=== PATIENT | male | born 1990 | race Caucasian/White ===

== ENCOUNTER 2019-01-01 02:36 | Emergency (ER) | payer OTHER, BC ==
[~2019-01-01] VITALS: Ht 185.4 cm; Wt 74.8 kg
[~2019-01-01 02:36] MED LIST: BACTRIM DS 8001 TAB PO; BUPROPION HCL150 M1 PO; HYDROCODONE BIT1 T11 PO; IBU800 M1 PO; KEFLEX500 M1 PO; MINIPRESS1 MG PO; Motrin,Rufen800 MG PO; NORCO 5-325 TA1 EACH PO; PROZAC10 MG PO
[2019-01-02 19:06] LABS: HEPATITIS B SURFACE AG Negative (Negative); HEPATITIS C VIRUS ANTIBODY <0.1 s/co (0.0-0.9)
== END 2019-01-01 03:09 ==
LOC: ED 02:36
PROVIDERS: Emergency Medicine Emergency Medical Services
DX: Z20.6 Contact with and (suspected) exposure to human immunodeficiency virus [HIV] (principal)

== ENCOUNTER 2019-07-08 08:55 | Emergency (ER) | payer BC ==
[~2019-07-08] VITALS: Ht 185.4 cm; Wt 74.8 kg
[2019-07-08 09:30] LABS: BILIRUBIN NEGATIVE (NEGATIVE); BLOOD 3+ (NEGATIVE); CLARITY SL CLOUDY (CLEAR); COLOR YELLOW (YELLOW); GLUCOSE NEGATIVE (NEGATIVE); KETONE NEGATIVE (NEGATIVE); LEUKO ESTERASE NEGATIVE (NEGATIVE); NITRITE NEGATIVE (NEGATIVE); UROBILINOGEN 0.2 E.U./dl (0.2-1.0)
[2019-07-08 09:35] LABS: RBC 21-30 rbc/hpf (0-2); WBC 0-2 wbc/hpf (0-5)
[2019-07-08 09:36] LABS: BACTERIA TRACE; EPITHELIAL CELLS 0-2; MUCOUS 2+
[2019-07-08 09:46] LABS: BASO % 0.2 % (0.0-1.0); EOS # 0.1 10*3/uL (0.0-0.4); EOS % 0.9 % (1.0-4.0); HEMATOCRIT 43.2 % (42.0-52.0); LYMPH # 1.8 10*3/uL (1.3-4.4); LYMPH % 33.2 % (27.0-41.0); MEAN CELL VOLUME 85.2 fl (80.0-94.0); MEAN CORPUSCULAR HGB 27.6 pg (27.0-31.0); MEAN CORPUSCULAR HGB CONC 32.4 g/dl (33.0-37.0); MEAN PLATELET VOLUME 10.1 fl (9.6-12.3); MONO # 0.4 10*3/uL (0.1-1.0); MONO % 7.8 % (3.0-9.0); NEUT # 3.2 10*3/uL (2.3-7.9); NEUT % 57.7 % (47.0-73.0); PLATELET COUNT AUTOMATED 252 10*3/uL (130-400); RED BLOOD COUNT 5.07 10*6/uL (4.50-5.90); RED CELL DISTRI WIDTH 14.1 % (0-14.5); WHITE BLOOD COUNT 5.5 10*3/uL (4.8-10.8)
[2019-07-08 10:01] LABS: ALKALINE PHOSPHATASE 51 U/L (45-117); BUN 13 mg/dl (7-24); CHLORIDE 106 mmol/L (98-107); CREATININE 1.01 mg/dL (0.70-1.30); LIPASE 79 U/L (73-393); POTASSIUM 4.4 mmol/L (3.5-5.1); SGOT/AST 22 IU/L (3-35); SGPT/ALT 24 U/L (12-78); SODIUM 140 mmol/L (136-145); TOTAL PROTEIN 6.9 gm/dL (6.4-8.2)
== END 2019-07-08 10:54 | disposition home or self-care (01) ==
LOC: ED 08:55
PROVIDERS: Physician Assistant
DX: N23 Unspecified renal colic (principal); F41.9 Anxiety disorder, unspecified; Z87.442 Personal history of urinary calculi; Z79.2 Long term (current) use of antibiotics; Z79.899 Other long term (current) drug therapy

== ENCOUNTER 2021-08-08 19:49 | Emergency (ER) | payer OTHER, BC ==
[~2021-08-08] VITALS: Ht 185.4 cm; Wt 74.8 kg
[2021-08-08] MEDS ORDERED: AUGMENTIN 875-875 MG PO (23:09)
== END 2021-08-08 23:16 | disposition home or self-care (01) ==
LOC: ED 19:49
DX: S50.352A Superficial foreign body of left elbow, initial encounter (principal); S41.132A Puncture wound without foreign body of left upper arm, initial encounter; W25.XXXA Contact with sharp glass, initial encounter; Y93.89 Activity, other specified; Y92.89 Other specified places as the place of occurrence of the external cause; Y99.9 Unspecified external cause status

== ENCOUNTER → 2022-05-29 | Outpatient (CLI) | payer BC ==
[~2022-05-29] MED LIST changes: +AUGMENTIN 875-875 MG PO
== END | disposition home or self-care (01) ==
LOC: RAD 12:15
PROVIDERS: ATTEND Internal Medicine
DX: S93.402A Sprain of unspecified ligament of left ankle, initial encounter (principal); M79.89 Other specified soft tissue disorders; X58.XXXA Exposure to other specified factors, initial encounter; Y93.89 Activity, other specified; Y92.89 Other specified places as the place of occurrence of the external cause; Y99.8 Other external cause status

== ENCOUNTER 2023-09-06 11:09 | Emergency (ER) | payer BC ==
[~2023-09-06] VITALS: Ht 177.8 cm; Wt 77.1 kg
[2023-09-06] MEDS ORDERED: Lactated Ringer's Solution 1,000 ML IV SCH (12:05)
[2023-09-06] MEDS ORDERED: Dexamethasone Sodium Phospha 20 MG/5 ML VIAL IV ONE (12:05)
[2023-09-06] MEDS ORDERED: IOHEXOL 300 MG/ML 100 ML VIAL IV ONE (12:15)
[2023-09-06 12:31] LABS: BASO # 0.1 10*3/uL (0.0-0.1); BASO % 0.3 % (0.0-1.0); EOS % 0.1 % (1.0-4.0); LYMPH # 1.6 10*3/uL (1.3-4.4); LYMPH % 9.2 % (27.0-41.0); MEAN CELL VOLUME 86.4 fl (80.0-94.0); MEAN CORPUSCULAR HGB 27.5 pg (27.0-31.0); MEAN CORPUSCULAR HGB CONC 31.8 g/dl (33.0-37.0); MEAN PLATELET VOLUME 10.7 fl (9.6-12.3); MONO # 1.2 10*3/uL (0.1-1.0); MONO % 6.7 % (3.0-9.0); NEUT # 14.5 10*3/uL (2.3-7.9); NEUT % 83.2 % (47.0-73.0); PLATELET COUNT AUTOMATED 313 10*3/uL (130-400); RED BLOOD COUNT 5.67 10*6/uL (4.50-5.90); RED CELL DISTRI WIDTH 15.6 % (0-14.5); WHITE BLOOD COUNT 17.4 10*3/uL (4.8-10.8)
[2023-09-06] MEDS ORDERED: Ampicillin Sodium/Sulbactam 3 GM in SODIUM CHLORIDE 0.9% 100 ML IV ONE (12:40)
[2023-09-06 12:48] LABS: ALKALINE PHOSPHATASE 81 U/L (46-116); BUN 10 mg/dl (9-23); CHLORIDE 106 mmol/L (98-107); POTASSIUM 3.6 mmol/L (3.4-5.1); SGPT/ALT 43 U/L (5-49); TOTAL PROTEIN 7.3 gm/dL (6.0-8.0)
[2023-09-06] MEDS ORDERED: AMOX-CLAV 875-1 EACH PO (12:49)
[2023-09-06] MEDS ORDERED: BENZOCAINE T ONE (13:30)
[2023-09-06] MEDS ORDERED: [UNRECOGNIZED DRUG - OTHER] T ONE (13:55)
[2023-09-06] MEDS ORDERED: PREDNISONE20 M1 PO (15:49)
== END 2023-09-06 13:56 | disposition home or self-care (01) ==
LOC: ED 11:09
PROVIDERS: Emergency Medicine
DX: J36 Peritonsillar abscess (principal); F41.9 Anxiety disorder, unspecified; Z87.442 Personal history of urinary calculi

== ENCOUNTER → 2023-10-05 | Outpatient (CLI) | payer OTHER ==
[~2023-10-05] MED LIST changes: +AMOX-CLAV 875-1 EACH PO; +PREDNISONE20 M1 PO
== END | disposition home or self-care (01) ==
LOC: MRI 10:00
PROVIDERS: ATTEND Family Medicine
DX: M47.816 Spondylosis without myelopathy or radiculopathy, lumbar region (principal); M51.37 Other intervertebral disc degeneration, lumbosacral region; M48.07 Spinal stenosis, lumbosacral region

== ENCOUNTER 2024-03-19 11:12 | Emergency (ER) | payer BC ==
[~2024-03-19] VITALS: Ht 182.8 cm; Wt 72.6 kg
[2024-03-19] MEDS ORDERED: Acetaminophen/Oxycodone 5 MG/325 MG TABLET PO ONE (11:25)
[2024-03-19] MEDS ORDERED: MELOXICAM15 MG PO (12:05)
== END 2024-03-19 12:08 | disposition home or self-care (01) ==
LOC: ED 11:12
DX: S20.211A Contusion of right front wall of thorax, initial encounter (principal); F41.9 Anxiety disorder, unspecified; Z87.442 Personal history of urinary calculi; X58.XXXA Exposure to other specified factors, initial encounter; Y93.89 Activity, other specified; Y92.89 Other specified places as the place of occurrence of the external cause; Y99.8 Other external cause status